=== PATIENT | male | born 1955 | race Caucasian/White ===

== ENCOUNTER 2019-08-18 13:11 | Inpatient (IN) | payer MEDICARE, BC, SELFPAY ==
--- NOTE | ~2019-08-18 | XR_ITS ---
EXAMINATION: XR chest 1V portable DATE: 08/18/2019 15:14 INDICATION: Fall down stairs with hip fracture. COPD. Preoperative evaluation. TECHNIQUE: frontal view of the chest was obtained. COMPARISON: None FINDINGS: The patient is rotated towards the left. No focal airspace opacities, pulmonary edema, pleural effusi on or pneumothorax. Blunting at the left costophrenic angle but not the vertebral phrenic angle likel y due to paracardial fat pad exaggerated by the leftward rotation of the patient. The right costophre rod angle is excluded from the [id number]. The cardiomediastinal silhouette is normal. Visualized bones and soft tissues are unremarkable. IMPRESSION: 1. No acute cardiopulmonary disease. Right costophrenic angle excluded from the [id number]-[id number]. Reviewed, dictated and finalized at location A. IMPRESSION: 1. No acute cardiopulmonary disease. Right costophrenic angle excluded from the nczto-ea-gowl.
--- NOTE | ~2019-08-18 | XR_ITS ---
EXAMINATION: XR surgery orthopedic EXAM DATE: 08/19/2019 14:16 INDICATION: Right hip pinning. TECHNIQUE: Fluoroscopy used during right hip lag screw placement performed by Dr. Nikko Kwon MD. The DAP for this procedure was 0.15 mGym2. FINDINGS: There are 3 lag screws traversing right hip subcapital femoral neck fracture. There has be en reduction in previously seen angulation and displacement. Correlate with procedure note. IMPRESSION: Fluoroscopy used during right hip fixation. Reviewed, dictated and finalized at location A.
--- NOTE | ~2019-08-18 | XR_ITS ---
XR hip RT 2V w AP pelvis 08/18/2019 14:20 Indication: Status post fall downstairs. Right hip pain. Procedure: 3 views right hip Comparison: No prior studies for comparison. Findings: There is a mildly displaced right femoral subcapital fracture. Pelvic rings are intact. Sac ral foramen are symmetric. No significant soft tissue abnormality. Impression: 1: Mildly displaced right femoral subcapital fracture. Reviewed, dictated and finalized at location A. Impression: 1: Mildly displaced right femoral subcapital fracture.
--- NOTE | ~2019-08-18 | XR_ITS ---
XR lumbar spine min 4V 08/18/2019 14:20 Indication: Low back pain Procedure: 4 views lumbar spine Comparison: No prior studies for comparison. Findings: There is mild levoscoliosis. Vertebral body heights and disc spaces are maintained. There i s atherosclerosis of the aorta. No acute fracture, subluxation or spondylolisthesis. There are mild f acet degenerative changes at L5-S1. Impression: 1: Mild lumbar spondylosis with levoscoliosis. Reviewed, dictated and finalized at location A. Impression: 1: Mild lumbar spondylosis with levoscoliosis.
[2019-08-18 13:14] VITALS: BP 153/86; PULSE 82; RESP 24; TEMP 37.1; O2SAT 98
[2019-08-18] MEDS: SODIUM CHLORIDE 0.9% IV 1,000 ML 999 ML IV CONT (13:39)
[2019-08-18 13:45] VITALS: RESP 14; O2SAT 99
--- NOTE | 2019-08-18 13:45 | ED.GENADULT ---
HPI - General Adult General Chief complaint: Extremity Injury, Lower Stated complaint: R HIP PAIN Source: patient and EMS Mode of arrival: EMS Limitations: no limitations History of Present Illness HPI narrative: Patient is a 64-year-old male who presents to emergency department per EMS from home where he lives with family for evaluation of right hip and groin pain that is been present now for 3 weeks noting that he had tripped over his dog 3 weeks ago landing on the right hip awkwardly and has since had moderate aching pain as he has been using a walker and taking his narcotic pain medication with relief patient denies new injuries or trauma. Patient denies any other complaints or injuries and is resting comfortably in the room in no distress. Pain is worse with activity and movement. Patient denies radicular symptoms or paresthesias Related Data Home Medications Medication Instructions Recorded Confirmed acetaminophen-codeine tablet PRN 08/18/19 [Tylenol-Codeine #3] Allergies Allergy/AdvReac Type Severity Reaction Status Date / Time No Known Allergies Allergy Verified 08/18/19 13:30 Review of Systems Review of Systems: All systems reviewed & are unremarkable except as noted in HPI and below PMFSH Past Medical History Medical History (Updated 08/18/19 @ 15:36 by Xander Parr PA-C) Arthritis Chronic pain COPD (chronic obstructive pulmonary disease) Surgical History Surgical History (Updated 08/18/19 @ 13:49 by Xander Parr PA-C) H/O inguinal hernia repair Social History Social History Smoking status: Current every day smoker Gender identity (if verbalized by the patient): Male Exam Narrative: Exam Narrative: GENERAL: Well-appearing, well-nourished, and in no acute distress. HEAD: Normocephalic, atraumatic. EYES: PERRLA and EOMI. ENT: Nares clear, no rhinorrhea or epistaxis. Mucous membranes moist. Oropharynx without tonsillar hypertrophy exudate or other lesions. NECK: Supple. No adenopathy or masses. CHEST: Clear to auscultation. No respiratory distress. No wheezes rales or rhonchi HEART: Regular rate and rhythm. No murmur heard. Normal peripheral pulses. ABDOMEN: Soft, nontender, nondistended EXTREMITIES: Normal range of motion. No edema. Tenderness of the right hip and groin no deformity noted. No midline cervical thoracic or lumbar tenderness SKIN: Warm, dry, no rash. NEURO: No focal deficits. Alert and oriented x3. Cranial nerves II through XII grossly intact. Neurovascularly intact PSYCH: Normal mood and affect. Course Course Emergency Course: Patient in the room in no distress aware of case findings treatment plan and diagnosis agreeing to stay in hospital Consultations Consultation #1: Discussed case with hospitalist who is agreed to accept the patient Discussed case with orthopedic surgery who has agreed to consult on patient Date: 08/18/19 Vital Signs Vital signs: Vital Signs Temperature 98.8 F 08/18/19 13:14 Pulse Rate 82 08/18/19 13:14 Respiratory Rate 24 H 08/18/19 13:14 Blood Pressure 153/86 H 08/18/19 13:14 Pulse Oximetry 98 08/18/19 13:14 Temperature 98.8 F 08/18/19 13:14 Pulse Rate 82 08/18/19 13:14 Respiratory Rate 24 H 08/18/19 13:14 Blood Pressure 153/86 H 08/18/19 13:14 Pulse Oximetry 98 08/18/19 13:14 Medical Decision Making [facility] Narrative Medical decision making narrative: Patient in the room at this time in no distress aware of case findings treatment plan and diagnosis agreeing to stay in hospital for his hip fracture Vital Signs Vital Signs: Vital Signs Temperature 98.8 F 08/18/19 13:14 Pulse Rate 82 08/18/19 13:14 Respiratory Rate 24 H 08/18/19 13:14 Blood Pressure 153/86 H 08/18/19 13:14 Pulse Oximetry 98 08/18/19 13:14 Temperature 98.8 F 08/18/19 13:14 Pulse Rate 82 08/18/19 13:14 Respiratory Rate 24 H 08/18/19 13:
--- NOTE | 2019-08-18 14:51 | ECG_ITS ---
Measurements Intervals [place] Rate: 73 P: 88 VT: 176 QRS: 49 QRSD: 94 T: 75 QT: 414 QTc: 459 Interpretive Statements SINUS RHYTHM BASELINE WANDER-- I, II, AVR, AVL NORMAL ECG Electronically Signed On 08-18-2019 16:01:57 CDT by Bola Augustine D.O.
[2019-08-18] MEDS: MORPHINE SULFATE 4 MG/ML INJ IV PUSH ×2 (14:56→18:32)
[2019-08-18 15:13] LABS: Basophils Absolute Auto 0.1 K/mm3 (0.0-0.1); Basophils Percent Auto 0.7 % (0.2-1.2); Eosinophils Absolute Auto 0.2 K/mm3 (0-0.3); Eosinophils Percent Auto 1.8 % (0-4.4); Hematocrit 37.3 % (42.0-52.0); Hemoglobin 12.1 g/dL (14.0-18.0); Immature Granulocyte Absolute 0.06 K/mm3 (0.00-0.031); Immature Granulocyte Percent A 0.7 % (0-0.5); Lymphocytes Percent Auto 26.3 % (18.3-44.2); Mean Corpuscular HGB Conc 32.4 g/dl (32-36); Mean Corpuscular Hemoglobin 28.5 pg (26-34); Mean Corpuscular Volume 87.8 fl (80-100); Mean Platelet Volume 9.6 fl (7.4-10.4); Monocytes Absolute Auto 0.6 K/mm3 (0.1-0.6); Monocytes Percent Auto 7.3 % (2.6-8.5); Neutrophils Absolute Auto 5.5 K/mm3 (1.3-6.7); Neutrophils Percent Auto 63.2 % (45.5-73.1); Platelet Count Result 324 k/mm3 (150-375); Red Blood Count 4.25 M/mm3 (4.6-6.20); Red Cell Distribution Width 13.2 % (11.5-14.5); White Blood Count 8.7 K/mm3 (4.5-10.0)
[2019-08-18 15:19] LABS: Partial Thromboplastin Time 30.2 SECONDS (22.3-36.8); Prothrombin Time 12.5 Seconds (11.1-14.7)
[2019-08-18 15:22] LABS: Alanine Aminotransferase 16 U/L (4-50); Albumin Level 3.6 g/dL (3.5-5.1); Alkaline Phosphatase 89 U/L (38-126); Aspartate Amino Transferase 22 U/L (17-59); Bilirubin,Total 0.3 mg/dL (0.2-1.3); Blood Urea Nitrogen 14 mg/dL (9-20); Calcium 8.7 mg/dL (8.4-10.2); Carbon Dioxide 25 mmol/L (22-30); Chloride 106 mmol/L (98-107); Estimated CRCL calculation 74 ml/min; Estimated Glomerular Filt Rate > 60; Glucose 97 mg/dL (75-110); Potassium 3.8 mmol/L (3.4-5.0); Sodium 137 mmol/L (137-145)
[2019-08-18 16:30] VITALS: BP 141/74; PULSE 70; RESP 14; O2SAT 96
[2019-08-18 18:10] VITALS: BP 148/79; PULSE 64; RESP 14; O2SAT 99
[2019-08-18 18:15] VITALS: BP 152/79; PULSE 65; RESP 16; TEMP 36.6; O2SAT 100
--- NOTE | 2019-08-18 18:20 | PC.NURSE ---
This patient, Tremayne Spencer, was admitted to [address] [facility] Surg Room 307-01. Patient/family oriented to hospital policies and general routines including ID bracelet, bed and alarms, visiting hours, pain management, procedures, bathroom and other care routines, personal items, smoking policy, room service/diet, and visiting hours. Valuables list has been completed. Information on how to activate the Rapid Response Team has been discussed. Patient/Family are encouraged to report perceived risks to care and to ask questions if they do not understand what they are told or what they should do.
--- NOTE | 2019-08-18 18:30 | PM.IMHP ---
H&P: HPI History of Present Illness Chief complaint: Right hip pain after fall several weeks ago. Narrative: Tremayne Spencer is a 64-year-old male smoker with COPD who presented to the emergency department earlier today via EMS from home for evaluation of right hip pain after a fall that occurred several weeks ago. About 3 weeks ago, he tripped over a pair of shoes on the steps while letting his dog out to the bathroom, and fell down approximately 8 or 9 steps, landing hard on his right side. He does mention hitting his head in the fall, and believes he had a brief loss of consciousness. His right hip has been sore since that time, and it gotten has gotten progressively more painful over the last several days. It is now to the point where he is ambulating with a walker that he had at home. He describes a moderate aching and occasionally sharp pain in the right hip, worse with weight-bearing. He has Tylenol 3 at home due to chronic pain, and that has given him some relief. He was found to have a right hip fracture and is being admitted in this setting. He denies paresthesias, skin color, and temperature changes distal to the fracture. He has no history of cardiac disease and denies exertional chest pain. He does have dyspnea on exertion which he attributes to his COPD. He has had a treadmill stress test within the last several years which was unremarkable. Review of Systems Review of Systems: Narrative: Twelve systems were reviewed with pertinent positives and negatives as per HPI. He wears reading glasses. He has occasional pill dysphagia but that is rare. It sounds as though he suffers from indigestion quite frequently, worse with things like spaghetti sauce. He has not had nausea or vomiting. Weight has remained stable. He does have constipation on occasion. No dysuria or hematuria. No nocturia, but he does have occasional dribbling at the end of his stream. No history of venous thromboembolism. He does have inhalers at home that he uses for COPD, and denies any recent change with regards to his breathing. He has had low-dose chest CT surveillance given his smoking history, and has never been told of any abnormalities. Except as documented, all other systems were reviewed and are negative. [facility] Past Medical History Medical History (Updated 08/18/19 @ 20:54 by Surekha Cunningham PA-C) Arthritis Benign colon polyp Last colonoscopy was approximately [address] Sanchez. Chronic obstructive pulmonary disease Chronic pain Mainly shoulder pain for which he will take Tylenol 3 p.r.n. Tobacco dependence Surgical History Surgical History (Updated 08/18/19 @ 20:51 by Surekha Cunningham PA-C) History of right inguinal hernia repair Family History Family History Father Mouth cancer Mother ETOH abuse Sibling ETOH abuse Drug overdose MVA (motor vehicle accident) Social History Social History (Updated 08/18/19 @ 20:52 by Surekha Cunningham PA-C) Social History: The patient lives in his own home in [place]. His 15-year-old grandson lives at home with him. The patient is retired from working for the [employer] He was in the [employer] when he was younger. He smoked up to 1/2 packs of cigarettes per day since his early 20s, but now smokes maybe half a pack a day. He estimates consuming 3 to 4 beers a month. No illicit drug use. He designates his daughter, Rachel Reyes, as his surrogate decision maker and he wishes to be a full code. Smoking packs per day: 0.5 Smoking cigarettes per day: 10.0 Years smoked: 45 Smoking pack-years: 22.50 Smoking status: Current every day smoker Tobacco type: cigarettes Second hand tobacco smoke exposure: Yes Alcohol intake: current Drinks per week: 1 Substance use: never Gender identity (if verbalized by the patient): Male Spiritual care concerns: No Agree to blood products: Yes
[2019-08-18] MEDS: LACTATED RINGERS 1,000 ML 125 ML IV CONT (18:31)
[2019-08-18 18:37] VITALS: BMI 23.3
[2019-08-18] MEDS: FAMOTIDINE 20 MG/2 ML VIAL IV PUSH (21:31)
[2019-08-18 21:52] VITALS: BP 123/68; PULSE 64; RESP 16; TEMP 36.7; O2SAT 96
[2019-08-19] VITALS (16 sets, daily range): BP systolic 119–177; BP diastolic 58–91; PULSE 66–93; RESP 11–18; TEMP 36.4–36.7; O2SAT 92–100
[2019-08-19] MEDS: MORPHINE SULFATE 4 MG/ML INJ IV PUSH ×2 (04:20→08:17)
[2019-08-19 05:31] LABS: Basophils Absolute Auto 0.1 K/mm3 (0.0-0.1); Basophils Percent Auto 0.9 % (0.2-1.2); Eosinophils Absolute Auto 0.3 K/mm3 (0-0.3); Eosinophils Percent Auto 4.2 % (0-4.4); Hematocrit 36.9 % (42.0-52.0); Hemoglobin 11.9 g/dL (14.0-18.0); Immature Granulocyte Absolute 0.02 K/mm3 (0.00-0.031); Immature Granulocyte Percent A 0.3 % (0-0.5); Lymphocytes Absolute Auto 2.64 K/mm3 (0.9-3.2); Lymphocytes Percent Auto 39.2 % (18.3-44.2); Mean Corpuscular HGB Conc 32.2 g/dl (32-36); Mean Corpuscular Hemoglobin 28.2 pg (26-34); Mean Corpuscular Volume 87.4 fl (80-100); Mean Platelet Volume 9.8 fl (7.4-10.4); Monocytes Absolute Auto 0.6 K/mm3 (0.1-0.6); Monocytes Percent Auto 8.3 % (2.6-8.5); Neutrophils Absolute Auto 3.2 K/mm3 (1.3-6.7); Neutrophils Percent Auto 47.1 % (45.5-73.1); Platelet Count Result 298 k/mm3 (150-375); Red Blood Count 4.22 M/mm3 (4.6-6.20); Red Cell Distribution Width 13.1 % (11.5-14.5); White Blood Count 6.7 K/mm3 (4.5-10.0)
[2019-08-19 05:38] LABS: Alanine Aminotransferase 15 U/L (4-50); Albumin Level 3.5 g/dL (3.5-5.1); Alkaline Phosphatase 68 U/L (38-126); Aspartate Amino Transferase 23 U/L (17-59); Bilirubin,Total 0.3 mg/dL (0.2-1.3); Blood Urea Nitrogen 10 mg/dL (9-20); Calcium 8.8 mg/dL (8.4-10.2); Carbon Dioxide 27 mmol/L (22-30); Chloride 106 mmol/L (98-107); Estimated CRCL calculation 82 ml/min; Estimated Glomerular Filt Rate > 60; Glucose 100 mg/dL (75-110); Potassium 4.1 mmol/L (3.4-5.0); Sodium 138 mmol/L (137-145)
[2019-08-19] MEDS: FAMOTIDINE 20 MG/2 ML VIAL IV PUSH (08:17)
--- NOTE | 2019-08-19 08:34 | PM.CNOR ---
Assessment and Plan Assessment and plan (1) Subcapital fracture of right femur: Qualifiers: Encounter type: initial encounter Fracture type: closed Qualified Code(s): S72.011A - Unspecified intracapsular fracture of right femur, initial encounter for closed fracture Code(s): S72.011A - Unspecified intracapsular fracture of right femur, initial encounter for closed fracture Status: Acute Assessment and Plan: Status post fall down steps 3 weeks ago. Increasing pain. New radiographs show subcapital femoral neck fracture right hip with angulation and displacement. Minimal healing. New patient consult for chief complaint right hip pain. History, physical exam and radiographs reviewed with the patient. Discussed the condition, nature, etiology and course of natural history with the patient. Treatment options including surgical and nonoperative treatment were reviewed. Risks and benefits of each as well as alternatives reviewed. The patient's questions were answered. Conservative treatment ice, DVT prophylaxis, pain control. discuss timing of injury 3 weeks ago. Non operative and operative outcomes at this point reviewed in detail. The patient like to proceed with surgery as he has not done well with non operative treatment. Discussed problems with chronicity with reduction of the fracture and partial healing. Discussed chance of failure with retainment of the femoral head and need for further surgery. Patient questions answered and verbalizes understanding. Discussed nonoperative and operative treatment options with the patient. Risks and benefits of each as well as alternatives were reviewed. All of the patient's questions were answered. The risks of surgery reviewed including but not limited to: Neurovascular damage, wound complication, infection, blood clot, pulmonary embolus, stroke, myocardial infarction, and anesthetic risks up to and including . Continued pain and possible dysfunction were explained. Specific risks of the procedure including later recurrence of deformity. No guarantees were offered. If hardware used, discussed risk of failure/ breakage and possible need for removal. If complications occur, the patient understands the need for further treatment, possible further surgery. Patient verbalizes understanding and wishes to proceed. PLAN: Right hip reduction with internal fixation History of Present Illness HPI Consult date: 08/19/19 Requesting physician: Anita Ramirez MD Consult reason: fracture (right hip) Chief complaint: Right hip pain after fall several weeks ago. Narrative: 64-year-old gentleman who 3 weeks ago was at home going down stairs to the basement. He lost his balance and fell approximately 9 steps injuring his right hip. Due to concerns over Coronavirus he tried to avoid coming to the hospital. He had right hip pain and difficulty bearing weight. He has been using a walker. He has had increased pain, difficulty with weight-bearing, weakness of the right hip and leg increasing over the past 3 to 4 days. He presented to the emergency room yesterday. He denies any prior problems with the hip. Does have some low back pain and issues. Denies numbness or tingling. Denies any head or neck injury at the time of his fall. Review of Systems Constitutional: Constitutional: Denies fever(s) Eyes: Eyes: Denies blurry vision ENT: Reports Normal hearing present Cardiovascular: Cardiovascular: Denies chest pain and Denies dyspnea Respiratory: Respiratory: Denies dyspnea and Denies wheezing Gastrointestinal: Gastrointestinal: Denies abdominal pain Genitourinary: Genitourinary: Denies urinary urgency Musculoskeletal: Musculoskeletal: Reports as per HPI and Denies numbness Integumentary/Breasts: Skin/Breast: Denies changing lesions and Denies sores Neurologic: Reports Normal hearing present, Denies behavioral changes, Denies confusion, Denies numbness and D
[2019-08-19] MEDS: LACTATED RINGERS 1,000 ML 30 ML IV CONT (11:55)
--- NOTE | 2019-08-19 13:02 | WPDANESEPPF ---
Anes - Initial Pre Proc Eval Procedure: Operation Date: 08/19/19 13:00 Proposed Procedures p Right Hip Pinning(Right) - Nikko Kwon MD Date/Time: 08/19/19 13:02 Pre Op Diagnosis: Right hip pain after fall several weeks ago. Patient Data Age: 64 Gender: M Height: 1.75 m Weight: 71.9 kg Last Vital Signs Temp 36.6 C 08/19/19 12:29 Pulse 82 08/19/19 12:29 Resp 18 08/19/19 12:29 BP 147/67 H 08/19/19 12:29 Pulse Ox 96 08/19/19 12:29 Allergies Allergy/AdvReac Type Severity Reaction Status Date / Time No Known Allergies Allergy Verified 08/18/19 13:30 Home Medications Medication Instructions Recorded Confirmed Type acetaminophen-codeine 1 tablet QID PRN 08/18/19 08/18/19 History [Tylenol-Codeine #3] budesonide-formoterol [Symbicort] 1 inh INHALATION DAILY 08/19/19 08/19/19 History tiotropium bromide [Spiriva 2 puff INHALATION BID PRN 08/19/19 08/19/19 History Respimat] Laboratory Tests 08/18/19 08/18/19 08/18/19 15:04 15:04 15:04 WBC 8.7 K/mm3 K/mm3 (4.5-10.0) RBC 4.25 M/mm3 L M/mm3 (4.6-6.20) Hgb 12.1 g/dL L g/dL (14.0-18.0) Hct 37.3 % L % (42.0-52.0) MCV 87.8 fl fl (80-100) MCH 28.5 pg pg (26-34) MCHC 32.4 g/dl g/dl (32-36) RDW 13.2 % % (11.5-14.5) Plt Count 324 k/mm3 k/mm3 (150-375) MPV 9.6 fl fl (7.4-10.4) Immature Gran % (Auto) 0.7 % H % (0-0.5) Neut % (Auto) 63.2 % % (45.5-73.1) Lymph % (Auto) 26.3 % % (18.3-44.2) Rains % (Auto) 7.3 % % (2.6-8.5) Eos % (Auto) 1.8 % % (0-4.4) Baso % (Auto) 0.7 % % (0.2-1.2) Lymph # (Auto) 2.30 K/mm3 K/mm3 (0.9-3.2) Rains # (Auto) 0.6 K/mm3 K/mm3 (0.1-0.6) Eos # (Auto) 0.2 K/mm3 K/mm3 (0-0.3) Baso # (Auto) 0.1 K/mm3 K/mm3 (0.0-0.1) Abs Immat Gran (auto) 0.06 K/mm3 H K/mm3 (0.00-0.031) Absolute Neuts (auto) 5.5 K/mm3 K/mm3 (1.3-6.7) Absolute Nucleated RBC 0.0 K/mm3 K/mm3 (0.0-0.012) Nucleated RBC % 0.0 % % (0.0-0.2) PT 12.5 Seconds Seconds (11.1-14.7) INR 1.0 APTT 30.2 SECONDS SECONDS (22.3-36.8) Sodium 137 mmol/L mmol/L (137-145) Potassium 3.8 mmol/L mmol/L (3.4-5.0) Chloride 106 mmol/L mmol/L (98-107) Carbon Dioxide 25 mmol/L mmol/L (22-30) BUN 14 mg/dL mg/dL (9-20) Creatinine 0.90 mg/dL mg/dL (0.7-1.3) Estim Creat Clear Calc 74 ml/min ml/min Estimated GFR > 60 (59 - ) Glucose 97 mg/dL mg/dL (75-110) Calcium 8.7 mg/dL mg/dL (8.4-10.2) Total Bilirubin 0.3 mg/dL mg/dL (0.2-1.3) AST 22 U/L U/L (17-59) ALT 16 U/L U/L (4-50) Alkaline Phosphatase 89 U/L U/L (38-126) Total Protein 7.0 g/dL g/dL (6.3-8.2) Albumin 3.6 g/dL g/dL (3.5-5.1) 08/19/19 08/19/19 05:07 05:07 WBC 6.7 K/mm3 K/mm3 (4.5-10.0) RBC 4.22 M/mm3 L M/mm3 (4.6-6.20) Hgb 11.9 g/dL L g/dL (14.0-18.0) Hct 36.9 % L % (42.0-52.0) MCV 87.4 fl fl (80-100) MCH 28.2 pg pg (26-34) MCHC 32.2 g/dl g/dl (32-36) RDW 13.1 % % (11.5-14.5) Plt Count 298 k/mm3 k/mm3 (150-375) MPV 9.8 fl fl (7.4-10.4) Immature Gran % (Auto) 0.3 % % (0-0.5) Neut % (Auto) 47.1 % % (45.5-73.1) Lymph % (Auto) 39.2 % % (18.3-44.2) Rains % (Auto) 8.3 % % (2.6-8.5) Eos % (Auto) 4.2 % % (0-4.4) Baso % (Auto) 0.9 % % (0.2-1.2) Lymph # (Auto) 2.64 K/mm3 K/mm3 (0.9-3.2) Rains # (Auto) 0.6 K/mm3 K/mm3 (0.1-0.6) Eos # (Auto) 0.3 K/mm3 K/mm3 (0-0.3) Baso # (Auto) 0.1 K/mm3 K/mm3 (0.0-0.1) Abs Immat Gran (auto) 0.02 K/mm3 K/mm3 (0.00-0.
[2019-08-19] MEDS: ceFAZolin 2 GM/D5W 50 ML 2 GM/50 ML BAG IVPB (13:22)
[2019-08-19] MEDS: BUPIVACAINE/EPINEPHRINE 0.5% 10 ML VIAL INFILTRATE (14:01)
--- NOTE | 2019-08-19 14:47 | P.OP_ITS ---
Procedure Note - Detailed Date of procedure: 08/19/19 Pre-op diagnosis: Right hip pain after fall several weeks ago. Right hip femoral neck fracture Post-op diagnosis: same Procedure performed: close reduction percutaneous pin fixation right hip Description of procedure: Indications: 64-year-old man witnessed fall onto right hip. Right hip femoral neck fracture. Patient discussed treatment options with surgery and non operative treatment including risks and benefits. They desire operative treatment. Implants used: Abraham 6.5 millimeter cannulated screw x3; 95mm What was done: Informed consent signed. Extremity marked in preoperative holding area. Patient received intravenous antibiotics. Brought to operating room and underwent general anesthetic by the Anesthesia Team. Positioned supine on the fracture table. Right leg placed into longitudinal traction. Left leg extended out of field. Image intensification brought in and confirm reduction of fracture. Right hip prepped and draped in usual sterile surgical fashion using ChloraPrep skin solution. Image intensification used to guide the starting position and a longitudinal incision made with 15 blade knife over the lateral proximal femur. Blunt dissection carried down to the lateral femur. Bleeding controlled with electrocautery. First guide pin placed in the inferior center position of the femoral neck and head. Confirmed with image intensification. Two subsequent pins placed superior and anterior and superior and posterior to the 1st pin to create an inverted triangle type pattern. Pins confirmed with image intensification. Length of screw measured, reaming performed. Appropriate size screw placed with good compression and fixation noted for all 3 pins. Guide pins removed. Final image intensification confirmed reduction of fracture and placement of hardware. Wound thoroughly irrigated with antibiotic solution. Fascia repaired with 2 Vicryl interrupted sutures. Subcutaneous tissue repaired with 3 0 Monocryl interrupted suture. Sterile dressing applied. Patient woken from anesthesia, extubated and returned to recovery room in stable condition. All sponge needle and instrument counts correct at the end of the case. Implants: [place] 6.5mm romel screw x 3 Anesthesia: GLMA Surgeon: Nikko Kwon MD Sales Planning Coordinator: 1st buyer assistant Estimated blood loss (mL): 50 Drains: No Packing: No Pathology: none sent Complications: None Condition: stable Disposition: PACU
--- NOTE | 2019-08-19 15:50 | PM.IMPN ---
Progress Note: A&P Assessment and Plan (1) Subcapital fracture of right femur: Qualifiers: Encounter type: initial encounter Fracture type: closed Qualified Code(s): S72.011A - Unspecified intracapsular fracture of right femur, initial encounter for closed fracture Code(s): S72.011A - Unspecified intracapsular fracture of right femur, initial encounter for closed fracture Status: Acute Assessment and Plan: Plain films revealed mildly displaced right femoral subcapital fracture. He underwent closed reduction and percutaneous pinning of the right hip by Dr. Kwon today. He reports that he is having moderate RLE discomfort post-op. Motor and sensation are intact. Post-op pain management, DVT prophylaxis, weight-bearing, and activity per Dr. Kwon, recommendations are greatly appreciated (2) Chronic obstructive pulmonary disease: Code(s): J44.9 - Chronic obstructive pulmonary disease, unspecified Status: Acute Assessment and Plan: Chronic. Continue albuterol PRN Continue symbicort (3) Tobacco dependence: Code(s): F17.200 - Nicotine dependence, unspecified, uncomplicated Status: Acute Assessment and Plan: The patient is a current 0.5 PPD smoker. I encouraged him to stop smoking and discussed the potential adverse cardiovascular outcomes of smoking. He declines the need for a nicotine patch. Continue to encourage smoking cessation (4) Elevated blood pressure reading: Code(s): R03.0 - Elevated blood-pressure reading, without diagnosis of hypertension Status: Acute Assessment and Plan: Blood pressures were reviewed and have been elevated in the 140-150s systolic with one reading of 177/85 pre-op. He does have pain due to his current injury and has no known hx of HTN. Continue to monitor closely and consider the addition of an antihypertensive if his blood pressures do not improve Subjective Date/time seen: 08/19/19 15:50 Interval history: Mr. Spencer was seen and examined at bedside this afternoon s/p closed reduction and percutaneous pinning of the right hip by Dr. Kwon. He reports moderate pain in the right hip and foot following surgery. He denies SOB, cough, chest pain, nausea, and vomiting. He denies headaches, dizziness, and lightheadedness. He denies fever and chills. Review of Systems Review of Systems: All systems reviewed & are unremarkable except as noted in HPI and below Exam Narrative: Exam Narrative: General: Well-developed, cooperative, and appears to be in no acute distress. HEENT: Normocephalic and atraumatic. Sclerae anicteric. Conjunctivae and lids normal. PERRL. EOMI. Mucous membranes tacky. Posterior pharynx without erythema or exudate. Neck: Supple. No lymphadenopathy or masses. Cardiac: Regular rate and rhythm. S1 and S2 normal. No murmur appreciated. Lungs: The pt is immediately post-op and is on 2L NC. Respiratory effort is normal without accessory muscle use. Breath sounds are slightly diminished but he has no rales, wheezes, or rhonchi. Abdomen: Bowel sounds normoactive. Abdomen is soft, non-distended, and non-tender. Extremities: No lower extremity edema bilaterally. DP and PT are palpable bilaterally. Neurological: Alert and oriented x3. Exam is non-focal. CN II-XII grossly intact. Motor and sensation intact to the feet bilaterally. Speech is clear. Skin: Warm and dry. Dressing in place to right hip c/d/i. No evidence of hematoma. RLE is warm and well-perfused. Psychiatric: Judgment and insight intact. Mood and affect normal. Objective Data Vital Signs Vital Signs: Vital Signs - 24 hr 08/18/19 16:30 08/18/19 18:10 08/18/19 18:15 Temperature 97.8 F Pulse Rate 70 64 65 Respiratory Rate 14 14 16 Blood Pressure 141/74 H 148/79 H 152/79 H Pulse Oximetry 96 99 100 08/18/19 21:52 08/19/19 05:40 08/19/19 12:29 Temperature 98.0 F 97.6 F 97.8 F Pulse Rate 64 66 82 Respiratory
[2019-08-19] MEDS: DIAZEPAM 5 MG TABLET PO (16:56)
[2019-08-19] MEDS: ACETAMINOPHEN 325 MG TABLET 650 MG PO (16:56)
[2019-08-19] MEDS: KCL 20 MEQ/D5/0.45% SOD CHL 1,000 ML 80 ML IV CONT (17:16)
[2019-08-19] MEDS: DOCUSATE SODIUM 100 MG CAPSULE PO (20:32)
[2019-08-19] MEDS: ASPIRIN 325 MG ENTERIC TABLET PO (20:32)
[2019-08-19] MEDS: FAMOTIDINE 20 MG TABLET PO (20:33)
[2019-08-20 01:20] VITALS: BP 114/67; PULSE 75; RESP 20; TEMP 36.6; O2SAT 95
[2019-08-20] MEDS: DIAZEPAM 5 MG TABLET PO ×2 (03:25→17:01)
[2019-08-20 05:20] VITALS: BP 129/68; PULSE 72; RESP 20; TEMP 36.8; O2SAT 100
[2019-08-20] MEDS: KCL 20 MEQ/D5/0.45% SOD CHL 1,000 ML 80 ML IV CONT (05:52)
[2019-08-20 06:18] LABS: Basophils Absolute Auto 0.1 K/mm3 (0.0-0.1); Basophils Percent Auto 0.4 % (0.2-1.2); Eosinophils Percent Auto 0.2 % (0-4.4); Hematocrit 37.7 % (42.0-52.0); Hemoglobin 12.5 g/dL (14.0-18.0); Immature Granulocyte Absolute 0.07 K/mm3 (0.00-0.031); Immature Granulocyte Percent A 0.6 % (0-0.5); Lymphocytes Percent Auto 16.4 % (18.3-44.2); Mean Corpuscular HGB Conc 33.2 g/dl (32-36); Mean Corpuscular Hemoglobin 28.5 pg (26-34); Mean Corpuscular Volume 85.9 fl (80-100); Mean Platelet Volume 9.9 fl (7.4-10.4); Monocytes Percent Auto 7.8 % (2.6-8.5); Neutrophils Absolute Auto 9.1 K/mm3 (1.3-6.7); Neutrophils Percent Auto 74.6 % (45.5-73.1); Platelet Count Result 303 k/mm3 (150-375); Red Blood Count 4.39 M/mm3 (4.6-6.20); Red Cell Distribution Width 12.7 % (11.5-14.5); White Blood Count 12.2 K/mm3 (4.5-10.0)
[2019-08-20 06:36] LABS: Blood Urea Nitrogen 10 mg/dL (9-20); Calcium 9.1 mg/dL (8.4-10.2); Carbon Dioxide 29 mmol/L (22-30); Chloride 102 mmol/L (98-107); Estimated CRCL calculation 93 ml/min; Estimated Glomerular Filt Rate > 60; Glucose 123 mg/dL (75-110); Sodium 135 mmol/L (137-145)
--- NOTE | 2019-08-20 08:54 | PM.PNORT ---
Progress Note: A&P Assessment and Plan (1) Subcapital fracture of right femur: Qualifiers: Encounter type: initial encounter Fracture type: closed Qualified Code(s): S72.011A - Unspecified intracapsular fracture of right femur, initial encounter for closed fracture Code(s): S72.011A - Unspecified intracapsular fracture of right femur, initial encounter for closed fracture Status: Acute Assessment and Plan: POD #1: close reduction percutaneous pin fixation right hip Continue PT/OT. PWB (50%) with walker/assistance. Continue pain control. Ice lateral leg. Monitor dressing. Change daily, dry gauze. Continue DVT prophylaxis with Aspirin. Incentive Spriometry. SCDs. Will continue to monitor. Dispo: Home with Home Health pending clearance by PT/OT. Subjective Subjective Date/Time Seen: 08/20/19 08:54 Post Op day: 1 Principal diagnosis: Right Femoral Neck Fracture Interval history: POD #1: Close Reduction Percutaneous Pin fixation right hip Patient feeling well. Pain well controlled. No new complaints. Review of Systems Constitutional: Constitutional: Denies fatigue, Denies fever(s) and Denies headache(s) Cardiovascular: Cardiovascular: Denies chest pain and Denies lightheadedness Respiratory: Respiratory: Reports dyspnea (COPD at baseline- no worsening SOB per patient ) Gastrointestinal: Gastrointestinal: Denies abdominal pain, Denies diarrhea, Denies nausea and Denies vomiting Comments: passing flatus Genitourinary: Genitourinary: Denies dysuria and Reports urinary frequency Musculoskeletal: Musculoskeletal: Reports arthralgias (right hip ), Denies numbness and Denies tingling Exam Const: General: no acute distress Resp: Effort & Inspection: normal respiratory effort Cardio: Rate: regular rate Rhythm: regular rhythm GI: Inspection: non-distended Urinary Catheter: Urinary Catheter: urine clear Neuro: Cognition (Neuro): normal cognition Motor exam (neuro): Abnormal motor strength present (weak RLE due to recent surgical intervention ) Sensory Exam: normal sensation Extrem: Right lower extremity: hip/thigh (Incision c/d/i. ) Details: tenderness Location: of the hip Location: laterally, swelling Location: at the hip (mild ) and abnormal ROM (limited due to recent surgical intervention ); no ecchymosis and no crepitus Other: 2+ pedal pulses RLE. +ankle dorsiflexion/plantarflexion. Negative Lisa's sign. Incision c/d/i. Psych: Mental Status: mental status grossly normal Affect: normal affect Objective Data Vital Signs Vital Signs: Vital Signs - 24 hr 08/19/19 12:29 08/19/19 14:20 08/19/19 14:35 Temperature 36.6 C 36.6 C Pulse Rate 82 88 84 Respiratory Rate 18 17 12 Blood Pressure 147/67 H 152/91 H 177/85 H Pulse Oximetry 96 99 100 08/19/19 14:50 08/19/19 15:05 08/19/19 15:28 Temperature 36.5 C Pulse Rate 82 84 87 Respiratory Rate 13 11 L 16 Blood Pressure 150/88 H 145/78 H 157/84 H Pulse Oximetry 100 99 92 08/19/19 15:50 08/19/19 15:55 08/19/19 16:20 Temperature 36.4 C 36.6 C Pulse Rate 84 86 Respiratory Rate 16 16 Blood Pressure 138/79 148/79 H Pulse Oximetry 98 98 94 08/19/19 17:20 08/19/19 20:10 08/19/19 20:30 Temperature 36.5 C Pulse Rate 87 Respiratory Rate 16 Blood Pressure 144/72 H Pulse Oximetry 95 99 97 08/19/19 20:57 08/19/19 21:05 08/19/19 21:17 Temperature 36.7 C Pulse Rate 93 Respiratory Rate 16 Blood Pressure 119/58 L Pulse Oximetry 94 97 97 08/20/19 01:20 08/20/19 05:20 Temperature 36.6 C 36.8 C Pulse Rate 75 72 Respiratory Rate 20 20 Blood Pressure 114/67 129/68 Pulse Oximetry 95 100 Intake/Output Intake/Output: Intake & Output 08/17/19 08/18/19 08/19/19 08/20/19 23:59 23:59 23:59 23:59 Intake Total 1979 1090 1750 Output Total 1023 7800 Balance 1979 65 -1000 Meds/Results Medications: Active Medications Generic Name Dose Route Start Last Admin Trade Name Freq
[2019-08-20] MEDS: DOCUSATE SODIUM 100 MG CAPSULE PO ×2 (09:36→20:48)
[2019-08-20] MEDS: ASPIRIN 325 MG ENTERIC TABLET PO ×2 (09:36→20:48)
[2019-08-20] MEDS: FAMOTIDINE 20 MG TABLET PO ×2 (09:36→20:48)
[2019-08-20 10:00] VITALS: BP 112/67; PULSE 95; RESP 16; TEMP 36.7; O2SAT 96
--- NOTE | 2019-08-20 13:01 | PM.IMPN ---
Progress Note: A&P Assessment and Plan (1) Subcapital fracture of right femur: Qualifiers: Encounter type: initial encounter Fracture type: closed Qualified Code(s): S72.011A - Unspecified intracapsular fracture of right femur, initial encounter for closed fracture Code(s): S72.011A - Unspecified intracapsular fracture of right femur, initial encounter for closed fracture Status: Acute Assessment and Plan: Plain films revealed mildly displaced right femoral subcapital fracture. He underwent closed reduction and percutaneous pinning of the right hip by Dr. Kwon 08/20/19. He is recovering very well. He reports that his pain is well-controlled and he ambulated to the bathroom with PWB. He has no other concerns. He has mild leukocytosis today at 12,200 which is likely reactive because he is post-op. Hb is stable at 12.5 today. Hct is 37.7. EBL was 50cc. Post-op pain management, DVT prophylaxis with ASA, weight-bearing, and activity per Dr. Kwon, recommendations are greatly appreciated Dispo plan is home with home health pending PT/OT clearance Continue incentive spirometry (2) Chronic obstructive pulmonary disease: Code(s): J44.9 - Chronic obstructive pulmonary disease, unspecified Status: Acute Assessment and Plan: Chronic and not in acute exacerbation. Continue albuterol PRN Continue symbicort (3) Tobacco dependence: Code(s): F17.200 - Nicotine dependence, unspecified, uncomplicated Status: Acute Assessment and Plan: The patient is a current 0.5 PPD smoker. I encouraged him to stop smoking and discussed the potential adverse cardiovascular outcomes of smoking. He declines the need for a nicotine patch. Continue to encourage smoking cessation (4) Elevated blood pressure reading: Code(s): R03.0 - Elevated blood-pressure reading, without diagnosis of hypertension Status: Acute Assessment and Plan: Blood pressures were reviewed and are at target. Most recent BP was 112/67. Continue to monitor Subjective Date/time seen: 08/20/19 13:01 Interval history: Mr. Spencer is seen and examined at bedside. He reports that his pain has improved today. He currently rates his pain at 2-3/10. He notes that it is primarily incisional and in the right hip. He did ambulate with partial weight bearing today with PT and walked assistance and felt that this went well. He denies vomiting, nausea, and abdominal pain. He reports occasional dyspnea with exertion with his COPD but feels that this is unchanged at this time. He denies chest pain and palpitations. He denies dizziness, lightheadedness, and headaches. He is tolerating PO intake well. He has not had a BM yet. He has no other complaints. Review of Systems Review of Systems: All systems reviewed & are unremarkable except as noted in HPI and below Exam Narrative: Exam Narrative: General: Well-developed, well-nourished, cooperative 64 y.o. male who is lying in bed resting and in no acute distress. HEENT: Normocephalic and atraumatic. Sclerae anicteric. Conjunctivae and lids normal. EOMI. Mucous membranes moist. Neck: Supple. No lymphadenopathy or masses. Cardiac: Regular rate and rhythm. S1 and S2 normal. Lungs: Oxygen saturation 96 on room air. Respirations are unlabored. Lungs are clear to auscultation without rales, rhonchi, or wheezing. Abdomen: Bowel sounds normoactive. Abdomen is soft, non-distended, and non-tender. Extremities: No significant edema to the lower extremities bilaterally. Pedal pulses palpable bilaterally. Neurological: Alert and oriented x3. Exam is non-focal. CN II-XII grossly intact. Motor and sensation intact to right foot. Speech is clear. Skin: Warm and dry. Dressing in place to right hip c/d/i. Incision is mildly tender without evidence of hematoma. RLE is warm and well-perfused. Psychiatric: Judgment and insight intact. Mood and affect normal. Objec
[2019-08-20 14:00] VITALS: BP 118/65; PULSE 94; RESP 18; TEMP 36.6; O2SAT 95
[2019-08-20 18:00] VITALS: BP 118/62; PULSE 94; RESP 16; TEMP 36.6; O2SAT 95
[2019-08-20 21:52] VITALS: BP 126/67; PULSE 68; RESP 18; TEMP 36.1; O2SAT 99
[2019-08-21 02:28] VITALS: BP 125/77; PULSE 76; RESP 20; TEMP 36.2; O2SAT 95
[2019-08-21 05:37] LABS: Basophils Absolute Auto 0.1 K/mm3 (0.0-0.1); Basophils Percent Auto 0.5 % (0.2-1.2); Eosinophils Absolute Auto 0.3 K/mm3 (0-0.3); Eosinophils Percent Auto 2.7 % (0-4.4); Hemoglobin 12.1 g/dL (14.0-18.0); Immature Granulocyte Absolute 0.06 K/mm3 (0.00-0.031); Immature Granulocyte Percent A 0.7 % (0-0.5); Lymphocytes Percent Auto 27.5 % (18.3-44.2); Mean Corpuscular HGB Conc 32.7 g/dl (32-36); Mean Corpuscular Hemoglobin 28.3 pg (26-34); Mean Corpuscular Volume 86.7 fl (80-100); Mean Platelet Volume 9.6 fl (7.4-10.4); Monocytes Absolute Auto 0.5 K/mm3 (0.1-0.6); Monocytes Percent Auto 5.5 % (2.6-8.5); Neutrophils Absolute Auto 5.7 K/mm3 (1.3-6.7); Neutrophils Percent Auto 63.1 % (45.5-73.1); Platelet Count Result 273 k/mm3 (150-375); Red Blood Count 4.27 M/mm3 (4.6-6.20); White Blood Count 9.1 K/mm3 (4.5-10.0)
[2019-08-21 05:42] LABS: Blood Urea Nitrogen 14 mg/dL (9-20); Calcium 8.7 mg/dL (8.4-10.2); Carbon Dioxide 28 mmol/L (22-30); Chloride 103 mmol/L (98-107); Estimated CRCL calculation 74 ml/min; Estimated Glomerular Filt Rate > 60; Glucose 121 mg/dL (75-110); Potassium 3.6 mmol/L (3.4-5.0); Sodium 136 mmol/L (137-145)
[2019-08-21 06:11] VITALS: BP 123/69; PULSE 85; RESP 20; TEMP 36.6; O2SAT 95
[2019-08-21 07:06] LABS: Vitamin D 25 Hydroxy < 12.8 ng/mL
[2019-08-21] MEDS: CHOLECALCIFEROL 1,000 UNIT TABLET 1000 UNITS PO (08:27)
[2019-08-21] MEDS: DOCUSATE SODIUM 100 MG CAPSULE PO (08:27)
[2019-08-21] MEDS: FAMOTIDINE 20 MG TABLET PO (08:27)
[2019-08-21] MEDS: ASPIRIN 325 MG ENTERIC TABLET PO (08:27)
--- NOTE | 2019-08-21 08:41 | PM.PNORT ---
Progress Note: A&P Assessment and Plan (1) Subcapital fracture of right femur: Qualifiers: Encounter type: initial encounter Fracture type: closed Qualified Code(s): S72.011A - Unspecified intracapsular fracture of right femur, initial encounter for closed fracture Code(s): S72.011A - Unspecified intracapsular fracture of right femur, initial encounter for closed fracture Status: Acute Assessment and Plan: POD #2: close reduction percutaneous pin fixation right hip PT/OT. PWB (50%) with walker/assistance. Continue pain control. Ice lateral leg. Monitor dressing. Change daily, dry gauze. Continue DVT prophylaxis with Aspirin. Incentive Spriometry. SCDs. Dispo: Home with Home Health today. Subjective Subjective Date/Time Seen: 08/21/19 08:41 Post Op day: 2 Interval history: Post Op day: 2 Principal diagnosis: Right Femoral Neck Fracture POD #2: Close Reduction Percutaneous Pin fixation right hip Patient feeling well. Pain well controlled. No new complaints. Wants to go home. Review of Systems Constitutional: Constitutional: Denies fatigue, Denies fever(s) and Denies headache(s) Cardiovascular: Cardiovascular: Denies chest pain and Denies lightheadedness Respiratory: Respiratory: Reports dyspnea (COPD at baseline- no worsening SOB per patient ) Gastrointestinal: Gastrointestinal: Denies abdominal pain, Denies diarrhea, Denies nausea and Denies vomiting Comments: passing flatus Genitourinary: Genitourinary: Denies dysuria and Reports urinary frequency Musculoskeletal: Musculoskeletal: Reports arthralgias (right hip ), Denies numbness and Denies tingling Exam Const: General: no acute distress Resp: Effort & Inspection: normal respiratory effort Cardio: Rate: regular rate Rhythm: regular rhythm GI: Inspection: non-distended Urinary Catheter: Urinary Catheter: urine clear Neuro: Cognition (Neuro): normal cognition Motor exam (neuro): Abnormal motor strength present (weak RLE due to recent surgical intervention ) Sensory Exam: normal sensation Extrem: Right lower extremity: hip/thigh (Incision c/d/i. ) Details: tenderness Location: of the hip Location: laterally, swelling Location: at the hip (mild ) and abnormal ROM (limited due to recent surgical intervention ); no ecchymosis and no crepitus Other: 2+ pedal pulses RLE. +ankle dorsiflexion/plantarflexion. Negative Lisa's sign. Incision c/d/i. Psych: Mental Status: mental status grossly normal Affect: normal affect Objective Data Vital Signs Vital Signs: Vital Signs - 24 hr 08/20/19 10:00 08/20/19 14:00 08/20/19 18:00 Temperature 36.7 C 36.6 C 36.6 C Pulse Rate 95 94 94 Respiratory Rate 16 18 16 Blood Pressure 112/67 118/65 118/62 Pulse Oximetry 96 95 95 08/20/19 21:52 08/21/19 02:28 08/21/19 06:11 Temperature 36.1 C L 36.2 C L 36.6 C Pulse Rate 68 76 85 Respiratory Rate 18 20 20 Blood Pressure 126/67 125/77 123/69 Pulse Oximetry 99 95 95 Intake/Output Intake/Output: Intake & Output 08/18/19 08/19/19 08/20/19 08/21/19 23:59 23:59 23:59 23:59 Intake Total 1979 1090 2870 720 Output Total 1022 6610 750 Balance 1979 65 430 30 Meds/Results Medications: Active Medications Generic Name Dose Route Start Last Admin Trade Name Freq PRN Reason Stop Dose Admin Acetaminophen 650 mg 08/18/19 20:58 08/19/19 16:56 Tylenol Tablet PO 650 mg Q6H PRN Administration Mild Pain (1-3) or Fever Hydrocodone Bitart/Acetaminophen 1 tab 08/18/19 20:58 08/21/19 05:00 Peterson 5-325 Mg PO 1 tab Q6H PRN Administration Pain Rated 4-6 Albuterol 2 puff 08/18/19 20:57 Proventil Hfa INHALATION QIDRT PRN Shortness Of Breath Aspirin 325 mg 08/19/19 21:00 08/21/19 08:27 Aspirin Ec PO 325 mg Q12HR AMY Administration Budesonide/Formoterol Fumarate 1 puff 08/20/19 08:00 08/20/19 10:03 Symbicort 160-4.5 Mcg (*Sp) Inhaler INHALATION 1 puff DAILYR
[2019-08-21 09:00] VITALS: O2SAT 92
[2019-08-21 10:00] VITALS: BP 107/60; PULSE 87; RESP 16; TEMP 36.6; O2SAT 96
--- NOTE | 2019-08-21 11:17 | PM.DS ---
DS: Diagnosis Admitting Diagnosis Admitting Diagnosis: Unspecified intracapsular fracture of right femur, initial encounter for closed fracture Discharge Diagnosis (1) Subcapital fracture of right femur: Qualifiers: Encounter type: initial encounter Fracture type: closed Qualified Code(s): S72.011A - Unspecified intracapsular fracture of right femur, initial encounter for closed fracture Code(s): S72.011A - Unspecified intracapsular fracture of right femur, initial encounter for closed fracture Status: Acute Assessment and Plan: Plain films revealed mildly displaced right femoral subcapital fracture. He underwent closed reduction and percutaneous pinning of the right hip by Dr. Kwon 08/20/19. (2) Chronic obstructive pulmonary disease: Code(s): J44.9 - Chronic obstructive pulmonary disease, unspecified Status: Acute Assessment and Plan: Albuterol and symbicort were continued. COPD was not in acute exacerbation. (3) Tobacco dependence: Code(s): F17.200 - Nicotine dependence, unspecified, uncomplicated Status: Chronic Assessment and Plan: The patient is a current 0.5 PPD smoker. I encouraged him to stop smoking and discussed the potential adverse cardiovascular outcomes of smoking. (4) Elevated blood pressure reading: Code(s): R03.0 - Elevated blood-pressure reading, without diagnosis of hypertension Status: Resolved Assessment and Plan: Resolved. Likely due to pain. DS: Summary Hospital Course Reason for hospitalization: Mildly displaced right femoral subcapital fracture Hospital Course: Mr. Spencer is a 64 y.o. male with PMH significant for COPD, and tobacco dependence who presented to the ED via EMS from home for evaluation of right hip and groin pain for 3 weeks. He reported that he sustained a mechanical fall 3 weeks prior after tripping when letting his dog out. His pain continued to worsen and he was requiring a walker for ambulation so he decided to proceed to the ED for further evaluation. Initial vitals in the ED were: Temp Pulse Resp BP Pulse Ox 98.8 F 82 24 H 153/86 H 98 08/18/19 13:14 08/18/19 13:14 08/18/19 13:14 08/18/19 13:14 08/18/19 13:14 Initial workup in the ED revealed mildly displaced and angulated subcapital femoral neck fracture on plain films. Dr. Kwon was consulted and he was admitted to the hospitalist service. He underwent closed reduction and percutaneous pinning of the right hip 08/19/[address] Kwon. He recovered well and his pain was controlled post-operatively. He ambulated with PWB with PT with walker/assistance without difficulty. His bowel and voiding function were normal and he was tolerating PO intake well. His vitamin D 25-hydroxy was low so supplementation was added and he was advised to follow-up with his PCP for DEXA. I discussed the importance of smoking cessation with the pt at length. At this time, he was not interested in pharmacologic therapy to aid in smoking cessation but I encouraged him to speak with his PCP further about this. His Hb was also mildly low at 12.1 and Hct 37.3 so he will need to ensure he is up to date on his colonoscopy with his PCP. He denied melena or hematochezia. He was stable for discharged and was discharged home with home health arranged to continue PT/OT in stable condition on the afternoon of 08/21/19. Time spent discussing smoking cessation with patient: more than 10 minutes Status at Discharge Functional status at discharge: uses cane/walker Overall status at discharge: patient is progressing back to baseline Time Spent with Patient Time attestation: Total time spent providing and/or coordinating discharge services: 30 minutes Exam Narrative: Exam Narrative: General: Well-developed and well-nourished 64 y.o. male sitting up in the chair in no acute distress. HEENT: Normocephalic and atraumatic. Conjunctivae and lids are normal. EOMI. Mucous membranes
== END 2019-08-21 12:09 | disposition home health service (06) | DRG 482 ==
LOC: ANHED 15:50 → ANH3MEDSUR 16:05
PROVIDERS: Emergency Medicine Emergency Medical Services; Orthopaedic Surgery; Physician Assistant; Admitting Provider Family Medicine; Emergency Provider Emergency Medicine; PCP Internal Medicine; Visit Provider Internal Medicine
PROC: 0QS634Z Reposition Right Upper Femur with Internal Fixation Device, Percutaneous Approach (ICD-10-PCS; principal; 2019-08-19 13:00)
DX: S72.011A Unspecified intracapsular fracture of right femur, initial encounter for closed fracture (principal); E83.32 Hereditary vitamin D-dependent rickets (type 1) (type 2); J44.9 Chronic obstructive pulmonary disease, unspecified; F17.210 Nicotine dependence, cigarettes, uncomplicated; R03.0 Elevated blood-pressure reading, without diagnosis of hypertension; D64.9 Anemia, unspecified; M19.90 Unspecified osteoarthritis, unspecified site; G89.29 Other chronic pain; M25.519 Pain in unspecified shoulder; W10.8XXA Fall (on) (from) other stairs and steps, initial encounter; Z79.899 Other long term (current) drug therapy; Z86.010 Personal history of colon polyps
CPT/HCPCS: 36415; 71045; 72110; 73502; 80048; 80053; 82306; 85025; 85610; 85730; 93005; 94640; 96361; 96374; 96375; 97110; 97116; 97162; 97165; 97530; 99285; A9270; C1713; C1769; J0131; J0690; J1100; J2250; J2270; J2405; J2704; J3010; J3480; J7030; J7120